=== PATIENT | female | born 1970 | race Caucasian/White ===

== ENCOUNTER 2016-09-24 11:12 | Emergency (ER) | payer MEDICARE, MEDICAID ==
[2005-10-13 18:23] VITALS: BP 117/66
[~2016-09-24] VITALS: Ht 157.5 cm; Wt 79.5 kg
[~2016-09-24 11:12] MED LIST: AMOXICILLIN 50500 MG PO; CEPHALEXIN500 M1 PO; LORTAB 5/500 501 TAB PO; NAPROSYN500 MG PO; NO HOME MEDICATIONS; NORCO 325 MG-51 TAB PO; OMNICEF 300MG300 MG PO
[2016-09-24 11:36] VITALS: BP 101/75; PULSE 92; TEMP 98.1
[2016-09-24] MEDS ORDERED: CRUTCHES MC (12:46)
== END 2016-09-24 13:19 | disposition home or self-care (01) ==
LOC: COL.ER 11:12
DX: S82.832A Other fracture of upper and lower end of left fibula, initial encounter for closed fracture (principal); W19.XXXA Unspecified fall, initial encounter

== ENCOUNTER → 2016-10-27 | Outpatient (CLI) | payer MEDICARE, MEDICAID ==
[~2016-10-27] MED LIST changes: +CRUTCHES MC
== END ==
LOC: COL.VAS 09:00
DX: M79.662 Pain in left lower leg (principal); R60.0 Localized edema

== ENCOUNTER 2021-02-04 14:52 | Emergency (ER) | payer MEDICARE, MEDICAID ==
[~2021-02-04] VITALS: Ht 157.5 cm; Wt 92.7 kg
[2021-02-04 15:39] VITALS: TEMP 98.6
[2021-02-04 16:31] LABS: BASO % 0.3 % (0.0-2.0); EOS % 0.5 % (0-4.0); GRAN % 65.9 % (42.2-75.2); HEMOGLOBIN 11.3 g/dl (12.5-16.0); LYMPH # 2.1 (1.2-3.4); LYMPH % 27.3 % (20.0-51.0); MEAN CELL VOLUME 74 fl (80.0-100.0); MEAN CORPUSCULAR HEMOGLOBIN 23 pg (27.0-31.0); MEAN CORPUSCULAR HGB CONC 31 g/dl (33.0-37.0); MEAN PLATELET VOLUME 9.6 fl (7.4-10.4); MONO # 0.4 (0.1-0.6); MONO % 5.6 % (1.7-9.3); PLATELET COUNT 394 K/mm3 (130-400); RED BLOOD COUNT 4.88 M/mm3 (4.10-5.30); REDCELL DISTRIBUTION WIDTH-CV 17.6 % (11.5-14.5)
[2021-02-04 16:33] LABS: HEMATOCRIT 36.3 % (37.0-47.0)
[2021-02-04 16:46] LABS: ALBUMIN 4.4 gm/dL (3.5-5.0); BILIRUBIN,TOTAL 0.5 mg/dL (0.0-1.0); CALCIUM 9.2 mg/dL (8.4-10.2); CREATININE, serum 0.52 (0.52-1.25); POTASSIUM 3.2 mmol/L (3.4-5.0); TOTAL PROTEIN 8.9 gm/dL (6.4-8.2)
[2021-02-04] MEDS ORDERED: TESSALON P100 MG/CAP PO (17:25)
[2021-02-04] MEDS ORDERED: PROAIR HFA0.09 MG/AC IH (17:25)
[2021-02-04] MEDS ORDERED: ZITHROMAX Z PA250 MG PO (17:25)
[2021-02-04 18:02] VITALS: BP 120/59; PULSE 94
== END 2021-02-04 18:04 | disposition home or self-care (01) ==
LOC: COL.ER 14:52
PROVIDERS: Nurse Practitioner Primary Care
DX: U07.1 COVID-19 (principal); F17.210 Nicotine dependence, cigarettes, uncomplicated
CPT/HCPCS: J7030

== ENCOUNTER 2021-07-31 00:56 | Emergency (ER) | payer MEDICARE, MEDICAID ==
[~2021-07-31 00:56] MED LIST changes: +PROAIR HFA0.09 MG/AC IH; +TESSALON P100 MG/CAP PO; +ZITHROMAX Z PA250 MG PO
== END 2021-07-31 01:06 | disposition left against medical advice (07) ==
LOC: COL.ER 00:56
DX: Z00.8 Encounter for other general examination (principal)